=== PATIENT | male | born 1980 | race Hispanic/Latino ===

== ENCOUNTER 2018-06-18 20:49 | Emergency (ER) | payer MEDICAID ==
[2018-06-18 21:02] VITALS: BP 118/86; PULSE 105; RESP 22; TEMP 98.2; O2SAT 98
--- NOTE | 2018-06-18 22:13 | C.PDOC ---
Time Seen by Provider: 06/18/18 22:13 Chief Complaint (Nursing): Medical Clearance Past Medical History Vital Signs: Last Vital Signs Temp 98.2 F 06/18/18 20:56 Pulse 105 H 06/18/18 20:56 Resp 22 06/18/18 20:56 BP 118/86 06/18/18 20:56 Pulse Ox 98 06/18/18 20:56 - Medical History PMH: Bipolar Disorder Denies: Chronic Kidney Disease - Social History Hx Alcohol Use: No Hx Substance Use: No - Immunization History Hx Tetanus Toxoid Vaccination: No Hx Influenza Vaccination: No Hx Pneumococcal Vaccination: No ED Course And Treatment O2 Sat by Pulse Oximetry: 98 Disposition Counseled Patient/Family Regarding: Studies Performed, Diagnosis - Disposition Disposition Time: 22:13
== END 2018-06-18 22:34 | disposition left against medical advice (07) ==
LOC: C.ER 20:49
DX: Z02.89 Encounter for other administrative examinations (principal); R11.0 Nausea